=== PATIENT | male | born 1975 | race Caucasian/White ===

== ENCOUNTER 2025-01-07 12:30 | Emergency (ER) | payer OTHER ==
[~2025-01-07] VITALS: Ht 175.3 cm; Wt 79.4 kg
[2025-01-07] MEDS: FAMOTIDINE/PF INJ 20 MG/2 ML VIAL IV ONE (12:06)
[2025-01-07 12:36] VITALS: TEMP 98.3
[2025-01-07] MEDS ORDERED: EPINEPHRINE (1:1000) 1 MG/ML AMPUL ONE (12:47)
[2025-01-07] MEDS ORDERED: FAMOTIDINE/PF INJ 20 MG/2 ML VIAL IV ONE (12:47)
[2025-01-07] MEDS ORDERED: dexaMETHasone SOD PHOSPHATE 1 ML ONE (12:47)
[2025-01-07] MEDS ORDERED: methylPREDNISolone SOD SUCC 125 MG/2ML VIAL ONE (12:47)
[2025-01-07] MEDS: EPINEPHRINE (1:1000) 1 MG/ML AMPUL SUBCUT ONE (12:53)
[2025-01-07] MEDS: IV NS 0.9% 1,000 ML BAG IV ONE (12:55)
[2025-01-07] MEDS: methylPREDNISolone SOD SUCC 125 MG/2ML VIAL IV ONE (12:56)
[2025-01-07] MEDS: dexaMETHasone SOD PHOSPHATE 10 MG/ML VIAL IV ONE (13:01)
[2025-01-07 13:04] LABS: BASOPHILS % (AUTO) 0.5 % (0.0-2.0); EOSINOPHILS # (AUTO) 0.1 K/uL (0.0-0.7); EOSINOPHILS % (AUTO) 2.1 % (0.0-6.0); HEMATOCRIT 38 % (39-51); HEMOGLOBIN 11.8 g/dL (13.5-17.5); LYMPHOCYTES % (AUTO) 47.8 % (20.0-44.0); MEAN CORPUSCULAR HEMOGLOBIN 21 PG (26.0-33.0); MEAN CORPUSCULAR HGB CONC 31 g/dl (31.0-36.0); MEAN CORPUSCULAR VOLUME 68 fL (80-96); MONOCYTES # (AUTO) 0.6 K/uL (0.1-1.30); MONOCYTES % (AUTO) 9.9 % (2.0-12.0); NEUTROPHILS # (AUTO) 2.5 K/uL (1.8-8.9); NEUTROPHILS % (AUTO) 39.7 % (43.0-81.0); PLATELET COUNT (AUTO) 408 K/uL (150-450); RED BLOOD CELL COUNT(AUTO) 5.62 MIL/uL (4.5-6.0); RED CELL DISTRIBUTION WIDTH 17.7 % (11.5-15.0); WHITE BLOOD COUNT (AUTO) 6.3 K/uL (4.3-11.0)
[2025-01-07 13:18] LABS: CARBON DIOXIDE 26 mmol/L (21-32); CHLORIDE 105 mmol/L (98-107); CREATININE 1.3 mg/dL (0.6-1.3); GLUCOSE 134 mg/dL (74-106); SODIUM SERUM 140 mmol/L (136-145); UREA NITROGEN, BLOOD 14 mg/dL (7-18)
[2025-01-07 13:24] LABS: ACETAMINOPHEN < 10 ug/ml (10-30); ALANINE AMINOTRANSFERASE 23 U/L (12-78); ALBUMIN 3.3 g/dL (3.4-5.0); ALCOHOL, BLOOD < 3 mg/dL (0-10); ALKALINE PHOSPHATASE 77 U/L (46-116); ASPARTATE AMINOTRANSFERASE 16 U/L (15-37); BILIRUBIN,DIRECT 0.1 mg/dL (0.0-0.2); BILIRUBIN,TOTAL 0.3 mg/dL (0.2-1.0); SALICYLATE 0.8 mg/dL (2.8-20.0); TOTAL PROTEIN, SERUM 6.9 g/dL (6.4-8.2)
[2025-01-07] MEDS ORDERED: PRED20TA PO (14:47)
[2025-01-07] MEDS ORDERED: DIPH25CA83 PO (14:47)
[2025-01-07] MEDS ORDERED: EPIN0.3P3 IM (14:47)
[2025-01-07] MEDS ORDERED: FAMO-131 PO (14:47)
[2025-01-07] MEDS ORDERED: CLIN300C12 PO (14:47)
[2025-01-07] MEDS: KETOROLAC TROMETHAMINE 15 MG/ML VIAL IV ONE (15:09)
[2025-01-07 15:16] VITALS: BP 136/80; O2SAT 96
== END 2025-01-07 15:10 | disposition home or self-care (01) ==
LOC: ER 13:14 → EDBD 13:14 → ER 15:10
DX: T88.6XXA Anaphylactic reaction due to adverse effect of correct drug or medicament properly administered, initial encounter (principal); T36.0X5A Adverse effect of penicillins, initial encounter; K08.9 Disorder of teeth and supporting structures, unspecified; I95.9 Hypotension, unspecified; R61 Generalized hyperhidrosis; F15.10 Other stimulant abuse, uncomplicated; F19.10 Other psychoactive substance abuse, uncomplicated; Z88.0 Allergy status to penicillin; Y92.89 Other specified places as the place of occurrence of the external cause
CPT/HCPCS: 99285; 96372; 96374; 96361; 96375; 93005; 71045; 85025; 80048; 80076; 36415; 84484; 80143; 80320; J1100; J0171; J1308; J2919; J7030; A4223; G0480